=== PATIENT | female | born 1985 | race Caucasian/White ===

== ENCOUNTER 2025-06-06 20:04 | Inpatient (IN) | payer BC, SELFPAY ==
[2025-06-06 21:14] VITALS: BMI 29.1
[2025-06-06] MEDS ORDERED: Calcium Carbonate 500 MG ChewTAB PO PRN (21:34)
[2025-06-06] MEDS ORDERED: Ondansetron PF 4 MG/2 ML Vial IVP PRN (21:34)
[2025-06-06] MEDS ORDERED: Melatonin 3 MG TAB PO PRN (21:34)
[2025-06-06] MEDS ORDERED: HYDROcodone/Acetaminophen 5/325 mg Tablet PO PRN (21:36)
[2025-06-06] MEDS ORDERED: Electrolyte Replacement Protocol 1 EACH FS SCH (21:45)
[2025-06-06] MEDS ORDERED: Potassium Chloride 20 MEQ in Premix 1 BAG IVPB PRN (22:15)
[2025-06-06] MEDS ORDERED: Magnesium 2 GM/50 ML(in water) 2 GM in Premix 1 BAG IVPB PRN (22:15)
[2025-06-06] MEDS ORDERED: PHOS-NAK 1 PKT PACK PO PRN (22:15)
[2025-06-06] MEDS: Ketorolac Tromethamine 30 MG (1 mL) VIAL IVP PRN (22:53)
[2025-06-07 05:40] LABS: ALT (SGPT) 13 U/L (Less than 34); AST (SGOT) 19 U/L (11-34); Albumin 3.8 g/dL (3.1-4.5); Alkaline Phosphatase 37 U/L (40-110); Anion Gap 12 mmol/L (10-20); BUN (Urea Nitrogen) 9 mg/dL (7.0-18.7); Bilirubin, Total 0.5 mg/dL (0.3-1.2); Calc. Creatinine Clearance 153 mL/min (70-130); Calcium 8.9 mg/dL (7.8-10.44); Carbon Dioxide 20 mmol/L (22-29); Chloride 109 mmol/L (98-107); Globulin 3.1 g/dL (2.4-3.5); Glucose 107 mg/dL (70-105); Potassium 4.0 mmol/L (3.5-5.1); Sodium 137 mmol/L (136-145)
[2025-06-07 06:00] LABS: Hematocrit 32.7 % (34.9-44.5); Hemoglobin 10.7 g/dL (12.0-15.5); Mean Corpuscular Hemoglobin 27.2 pg (27.0-33.0); Mean Corpuscular Volume 83.2 fL (81.6-98.3); Platelet Count 242 10x3/uL (150-450); Red Blood Cell (RBC) Count 3.93 10x6/uL (3.90-5.03); White Blood Cell (WBC) Count 7.21 10x3/uL (3.5-10.5)
[2025-06-07 06:15] LABS: MDiff Complete? YES; Ovalocytes MODERATE= 6-15 cells (100X) (0-1/hpf); Platelet Adequacy Comment Appears Adequate; Poikilocytosis MODERATE=16-30 cells (100X) (0-5/hpf)
[2025-06-07] MEDS: Spironolactone 25 MG TAB PO SCH (09:11)
[2025-06-07] MEDS: Acetaminophen 325 MG TAB PO PRN (09:19)
[2025-06-07] MEDS: Ketorolac Tromethamine 30 MG (1 mL) VIAL IVP PRN (15:09)
[2025-06-08 06:28] LABS: #Basophils 0.03 10x3/uL (0.0-0.2); #Eosinophils 0.11 10x3/uL (0.0-0.5); #Monocytes 0.57 10x3/uL (0.0-1.1); #Neutrophils 3.43 10x3/uL (1.5-8.4); %Basophils 0.4 % (0.0-2.0); %Eosinophils 1.6 % (0.0-6.0); %Lymphocytes 37.9 % (18.0-47.0); %Monocytes 8.5 % (0.0-10.0); %Neutrophils 51.5 % (40.0-75.0); Hematocrit 29.6 % (34.9-44.5); Hemoglobin 9.7 g/dL (12.0-15.5); Mean Corpuscular Hemoglobin 27.0 pg (27.0-33.0); Mean Corpuscular Volume 82.5 fL (81.6-98.3); Platelet Count 239 10x3/uL (150-450); Red Blood Cell (RBC) Count 3.59 10x6/uL (3.90-5.03); White Blood Cell (WBC) Count 6.68 10x3/uL (3.5-10.5)
[2025-06-08 06:46] LABS: Anion Gap 12 mmol/L (10-20); BUN (Urea Nitrogen) 9 mg/dL (7.0-18.7); Calc. Creatinine Clearance 136 mL/min (70-130); Calcium 8.2 mg/dL (7.8-10.44); Carbon Dioxide 21 mmol/L (22-29); Chloride 110 mmol/L (98-107); Glucose 97 mg/dL (70-105); Potassium 3.7 mmol/L (3.5-5.1); Sodium 139 mmol/L (136-145)
[2025-06-08] MEDS: FLU (Fluarix Triv) 25-26 (6MOS UP)/PF 45 MCG/0.5 ML Syringe IM ONE (15:20)
[2025-06-09 05:07] LABS: #Basophils 0.05 10x3/uL (0.0-0.2); #Eosinophils 0.24 10x3/uL (0.0-0.5); #Monocytes 0.75 10x3/uL (0.0-1.1); #Neutrophils 4.89 10x3/uL (1.5-8.4); %Basophils 0.6 % (0.0-2.0); %Eosinophils 2.7 % (0.0-6.0); %Lymphocytes 31.7 % (18.0-47.0); %Monocytes 8.6 % (0.0-10.0); %Neutrophils 56.1 % (40.0-75.0); Hematocrit 33.7 % (34.9-44.5); Hemoglobin 10.7 g/dL (12.0-15.5); Mean Corpuscular Hemoglobin 26.7 pg (27.0-33.0); Mean Corpuscular Volume 84.0 fL (81.6-98.3); Platelet Count 257 10x3/uL (150-450); Red Blood Cell (RBC) Count 4.01 10x6/uL (3.90-5.03); White Blood Cell (WBC) Count 8.73 10x3/uL (3.5-10.5)
[2025-06-09 13:33] VITALS: BP 113/70; TEMP 98.7
== END 2025-06-09 15:38 | disposition home or self-care (01) | DRG 605 ==
LOC: CSHTELE 20:27
PROVIDERS: ADMIT Family Medicine; ATTEND Family Medicine
DX: S01.85XA Open bite of other part of head, initial encounter (principal); L03.211 Cellulitis of face; M32.9 Systemic lupus erythematosus, unspecified; L08.9 Local infection of the skin and subcutaneous tissue, unspecified; W54.0XXA Bitten by dog, initial encounter; Z98.51 Tubal ligation status; Z79.899 Other long term (current) drug therapy
CPT/HCPCS: 36415; 70487; 80048; 80053; 84702; 85025; J0295; J1100; J1885